=== PATIENT | male | born 1950 | race Caucasian/White ===

== ENCOUNTER 2017-01-04 08:21 | Emergency (ER) | payer BC ==
--- NOTE | 2017-01-04 08:23 | UC ---
Eye Complaint HPI - HPI Summary HPI Summary: 66 year old male presents with left eye swelling after getting bit by an insect. - History of Current Complaint Stated Complaint: HEAD/LEFT EYE SKIN COMPLAINT Time Seen by Provider: 01/04/17 08:23 Hx Obtained From: Patient Onset/Duration: Sudden Onset Timing: Constant Severity Initially: Moderate Severity Currently: Moderate - Allergies/Home Medications Allergies/Adverse Reactions: Allergies Allergy/AdvReac Type Severity Reaction Status Date / Time No Known Allergies Allergy Verified 01/04/17 08:31 Home Medications: Home Medications Aspirin Low Dose CHEW TAB* [Aspirin Low Dose TAB*] 81 mg PO DAILY 01/04/17 [ History Confirmed 01/04/17] Metoprolol Tartrate TAB* [Lopressor TAB*] 125 mg PO DAILY 01/04/17 [History Confirmed 01/04/17] Simvastatin TAB(NF) [Zocor 20 MG (NF)] 40 mg PO 1700 01/04/17 [History Confirmed 01/04/17] Valsartan TAB* [Diovan TAB*] 320 mg PO DAILY 01/04/17 [History Confirmed ] Verapamil TAB* [Calan TAB*] 120 mg PO DAILY 01/04/17 [History Confirmed 01/04/17 ] PMH/Surg Hx/FS Hx/Imm Hx Previously Healthy: Yes Review of Systems Constitutional: Negative Skin: Negative Eyes: Eye Redness, Other - left eyelid swelling ENT: Negative Respiratory: Negative Cardiovascular: Negative Gastrointestinal: Negative Genitourinary: Negative Motor: Negative Neurovascular: Negative Musculoskeletal: Negative Neurological: Negative Psychological: Negative All Other Systems Reviewed And Are Negative: Yes Physical Exam Triage Information Reviewed: Yes Vital Signs Reviewed: Yes Eyes: Positive: Other: - left upper eyelid swelling ENT Exam: Normal Dental Exam: Normal Neck exam: Normal Neck: Positive: 1 Respiratory Exam: Normal Cardiovascular Exam: Normal Abdominal Exam: Normal Musculoskeletal Exam: Normal Neurological Exam: Normal Psychological Exam: Normal Skin Exam: Normal Eye Complaint Course/Dx - Differential Dx/Diagnosis Provider Diagnoses: left upper eyelid swelling. insect bite Discharge - Discharge Plan Condition: Stable Disposition: HOME Prescriptions: Amoxicillin PO (*) [Amoxicillin 875 MG (*)] 875 mg PO BID #20 tab LoraTADine TAB(NF) [Claritin 10 MG TAB(NF)] 10 mg PO DAILY #30 tab Methylprednisolone [Medrol Dosepak 4 MG*] 4 mg PO .SEE ALEA INSTRUCTION #21 tab Patient Education Materials: Periorbital Cellulitis in Adults (ED)
[2017-01-04 08:33] VITALS: BP 130/84
== END 2017-01-04 09:01 | disposition home or self-care (01) ==
LOC: UCCORT 08:21
DX: S00.262A Insect bite (nonvenomous) of left eyelid and periocular area, initial encounter (principal); W57.XXXA Bitten or stung by nonvenomous insect and other nonvenomous arthropods, initial encounter; Y92.9 Unspecified place or not applicable; H02.844 Edema of left upper eyelid
CPT/HCPCS: 99202; G0463